=== PATIENT | female | born 1970 | race Caucasian/White ===

== ENCOUNTER 2019-01-06 12:54 | Outpatient (CLI) | payer OTHER ==
--- NOTE | 2019-01-06 14:08 | RAD ---
XR Cervical Sp Com W/Obl Fl/Ex History: [Polyarthritis, spondylolysis] Comparison: Cervical spine radiographs 2007 Findings: There is advanced degenerative disc space height loss at C5/C6 and C6/C7 with circumferenti al disc osteophyte complexes. There is 2 mm anterolisthesis of C4 over C5 in flexion as well as 3 mm retrolisthesis of C4 over C5 with extension. Moderate hypertrophic facet changes on the right at C4-C7 and on the left at C3-C7. Open-mouth odonto id view is normal. Impression: 1. Advanced degenerative disc space disease from C5-C7. 2. Hypermetabolic translation with flexion and extension at C4/C5.
--- NOTE | 2019-01-06 14:10 | RAD ---
XR Lumbar Spine 2 Or 3 View History: [Tarsalgia] Comparison: None. Findings: There is moderate degenerative disc space narrowing at L3/L4, L4/L5, L5/S1, although worst at L3/L4 with sclerosis and osteophyte formation. Low-grade levoscoliosis centered at L3/L4. There is mild degenerative 2 mm L2 over L3 retrolisthesis. Mild narrowing of the interspinous space a t L4/L5. No abnormal calcifications projecting over the renal shadows. Paraspinal soft tissues are unremarkabl e. Impression: Moderate degenerative changes worst at L2-L5 with associated mild levoscoliosis.
== END 2019-01-06 12:55 | disposition home or self-care (01) ==
LOC: BICRAD 12:54
PROVIDERS: ATTEND Family Medicine
DX: M13.0 Polyarthritis, unspecified (principal); M54.89 Other dorsalgia; M47.816 Spondylosis without myelopathy or radiculopathy, lumbar region; M41.9 Scoliosis, unspecified; M50.322 Other cervical disc degeneration at C5-C6 level
CPT/HCPCS: 72052; 72100

== ENCOUNTER 2019-03-03 15:21 | Emergency (ER) | payer OTHER ==
[2019-03-03 17:28] LABS: #Basophils 0.1 thou/uL (0.0-0.2); #Eosinphils 0.1 thou/uL (0.0-0.7); #Lymphocytes 1.6 thou/uL (1.20-3.40); #Monocytes 0.4 thou/uL (0.11-0.59); %Basophils 1.3 % (0.0-1.0); %Eosinophils 2.3 % (0.0-10.0); %Lymphocytes 30.4 % (21.0-51.0); %Monocytes 7.3 % (0.0-10.0); %Neutrophils 58.6 % (42.0-75.0); Hemoglobin 10.8 g/dL (12.0-16.0); Mean Corpuscular HGB CONC 32.4 g/dL (32.0-36.0); Mean Corpuscular Hemoglobin 26.5 pg (27.0-31.0); Mean Corpuscular Volume 81.9 fL (78.0-98.0); Platelet Count 287 thou/uL (130-400); RBC Distribution Width 17.4 % (11.5-14.5); Red Blood Cell (RBC) Count 4.09 mill/uL (4.20-5.40); White Blood Cell (WBC) Count 5.1 thou/uL (4.8-10.8)
[2019-03-03 17:51] LABS: ALT (SGPT) 22 U/L (8-55); AST (SGOT) 25 U/L (5-34); Albumin 4.2 g/dL (3.5-5.0); Alkaline Phosphatase 59 U/L (40-150); Anion Gap 12 mmol/L (10-20); BUN (Urea Nitrogen) 12 mg/dL (7.0-18.7); Bilirubin, Total 0.3 mg/dL (0.2-1.2); Calc. Creatinine Clearance 0 mL/min (70-130); Calcium 9.6 mg/dL (7.8-10.44); Carbon Dioxide 25 mmol/L (22-29); Chloride 105 mmol/L (98-107); Estimated GFR-MDRD 82; Glucose 93 mg/dL (70-105); Potassium 3.8 mmol/L (3.5-5.1); Protein, Total 7.2 g/dL (6.0-8.3); Sodium 138 mmol/L (136-145)
[2019-03-03 18:22] LABS: Bilirubin Negative (Negative); Blood, Urine Negative (Negative); Clarity CLEAR (Clear); Glucose, Urine (Dipstick) Negative (Negative); Leukocyte Negative (Negative); Nitrite Negative (Negative); Protein, Urine (Dipstick) Negative (Neg-Trace); Specific Gravity, Urine 1.019 (1.002-1.036); Urobilinogen 0.2 mg/dL (0.2-1.0); pH, Urine 7.5 (5.0-9.0)
--- NOTE | 2019-03-03 19:57 | CT ---
CT ABDOMEN AND PELVIS WITH IV CONTRAST 03/03/2019 CLINICAL INFORMATION:. Diffuse abdominal pain with radiation of pain to the back and pelvis COMPARISON: None. Technique: Multiple contiguous axial CT images are obtained through the abdomen and pelvis with IV contrast. Cor onal reformatted images are provided. FINDINGS: Lower Chest: within normal limits. Vessels: Abdominal aorta is normal in caliber without evidence of an aortic dissection. Abdomen: Portal vein:Patent Gallbladder: Within normal limits for CT imaging. Liver: within normal limits. Pancreas: within normal limits. Spleen: within normal limits. Adrenals: within normal limits. Kidneys: Subcentimeter density is seen in the inferior pole right kidney which may represent a small focal area of scarring. Kidneys otherwise demonstrate a normal CT appearance. Bowel: Small amount of retained fecal material seen in the colon. Loops of small bowel are normal in caliber. There is suggestion of mild thickening of the balderas of the small bowel at the level of the ligament of Treitz, but this is probably related to peristalsis. No adjacent inflammatory changes are seen to suggest enteritis. Appendix: The appendix is visualized and normal in caliber. Peritoneum: No ascites or free air; no fluid collection. Mesentery and Retroperitoneum: No enlarged mesenteric or retroperitoneal lymph nodes. Abdominal Wall: within normal limits. Pelvis: Reproductive Organs: Evidence of hysterectomy. A 1.8 cm low-density structure is seen in the left adn exal region may represent a small left ovarian cyst. Pelvis within normal limits. Bladder: Decompressed and not well evaluated. Bones: Degenerative changes are seen throughout the lumbar spine greatest at the L2-3 and L3-4 levels IMPRESSION: No acute findings in the abdomen or pelvis.
== END 2019-03-03 20:34 | disposition home or self-care (01) ==
LOC: ERS 15:21
DX: R10.30 Lower abdominal pain, unspecified (principal); F41.9 Anxiety disorder, unspecified; F32.9 Major depressive disorder, single episode, unspecified; Z79.899 Other long term (current) drug therapy; Z79.891 Long term (current) use of opiate analgesic
CPT/HCPCS: 36415; 74177; 80053; 81003; 85025; 96372; J0500

== ENCOUNTER 2021-01-23 10:43 | Outpatient (CLI) | payer BC | END 2021-01-23 10:44 | disposition home or self-care (01) | LOC: BICMAMMO 10:43 | PROVIDERS: ATTEND Family Medicine | DX: Z12.31 Encounter for screening mammogram for malignant neoplasm of breast (principal) | CPT/HCPCS: 77063; 77067 ==

== ENCOUNTER 2021-06-09 15:24 | Outpatient (CLI) | payer BC | END 2021-06-09 15:25 | disposition home or self-care (01) | LOC: BICCT 15:24 | PROVIDERS: ATTEND Family Medicine | DX: R82.998 Other abnormal findings in urine (principal) | CPT/HCPCS: 74176 ==